=== PATIENT | male | born 1970 | race African-American/Black ===

== ENCOUNTER 2017-02-24 22:17 | Emergency (ER) | payer SELFPAY ==
--- NOTE | 2017-02-25 00:13 | ER Document Report ---
HPI - HPI Patient complains to provider of: elevated blood pressure Onset: Other - 3 days Onset/Duration: Persistent Quality of pain: No pain Pain Level: Denies Context: Pt states that he recently started measuring his blood pressure at home and has noticed that it has been elevated despite being compliant with taking his lisinopril. Patient denies any recent medication dosage changes to his medicine. Patient states his blood pressure was 185/107 at home which prompted him to come in today. Patient denies any complaints. Patient denies any headache, chest pain, shortness of breath, urinary symptoms or visual complaints. Additionally does complain of some insomnia. Reports that he has difficulty falling asleep as well as staying asleep at night. Associated Symptoms: Other - Insomnia Exacerbated by: Denies Relieved by: Denies Similar symptoms previously: Yes Recently seen / treated by doctor: No - ROS ROS below otherwise negative: Yes Systems Reviewed and Negative: Yes All other systems reviewed and negative - CONSTITUTIONAL Constitutional: DENIES: Fever, Chills - NEURO Neurology: DENIES: Headache, Weakness - CARDIOVASCULAR Cardiovascular: DENIES: Chest pain - RESPIRATORY Respiratory: DENIES: Trouble Breathing, Coughing - GASTROINTESTINAL Gastrointestinal: DENIES: Abdominal Pain, Nausea, Patient vomiting - MUSCULOSKELETAL Musculoskeletal: DENIES: Back Pain - DERM Skin Color: Normal Skin Problems: None Past Medical History - General Information source: Patient - Social History Smoking Status: Never Smoker Frequency of alcohol use: Occasional Drug Abuse: None Family History: Reviewed & Not Pertinent Patient has suicidal ideation: No Patient has homicidal ideation: No - Past Medical History Cardiac Medical History: Reports: Hx Hypertension Renal/ Medical History: Denies: Hx Peritoneal Dialysis Musculoskeltal Medical History: Reports Hx Gout Surgical Hx: Negative - Immunizations Hx Diphtheria, Pertussis, Tetanus Vaccination: Yes - received Tetanus in [facility] Provider Document - CONSTITUTIONAL Agree With Documented VS: Yes Exam Limitations: No Limitations General Appearance: WD/WN, No Apparent Distress - INFECTION CONTROL TRAVEL OUTSIDE OF THE [place] IN LAST 30 DAYS: No - HEENT HEENT: Atraumatic, Normal ENT Exam, Normocephalic - NECK Neck: Normal Inspection, Supple. negative: Lymphadenopathy-Left, Lymphadenopathy-Right - RESPIRATORY Respiratory: Breath Sounds Normal, No Respiratory Distress, Chest Non-Tender O2 Sat by Pulse Oximetry: 97 - CARDIOVASCULAR Cardiovascular: Regular Rate, Regular Rhythm, No Murmur - BACK Back: Normal Inspection - MUSCULOSKELETAL/EXTREMETIES Musculoskeletal/Extremeties: MAEW, FROM, No Edema - NEURO Level of Consciousness: Awake, Alert, Appropriate Motor/Sensory: No Motor Deficit - DERM Integumentary: Warm, Dry, No Rash Course - Vital Signs Vital signs: Temp Pulse Resp BP Pulse Ox 98.1 F 81 18 158/78 H 97 02/24/17 23:00 02/24/17 23:00 02/24/17 23:00 02/25/17 00:05 02/24/17 23:00 Discharge - Discharge Clinical Impression: Hx of essential hypertension Insomnia Qualifiers: Insomnia type: unspecified Qualified Code(s): G47.00 - Insomnia, unspecified Condition: Stable Disposition: HOME, SELF-CARE Instructions: High Blood Pressure ([facility]), Insomnia ([facility]) Additional Instructions: Return immediately for any new or worsening symptoms Followup with your primary care provider,Dr Salas, call tomorrow to make a followup appointment Your blood pressure was mildly elevated today, call your doctor on Sunday for a follow-up appointment to have your blood pressure rechecked. Prescriptions: Hydroxyzine HCl [Atarax 25 mg Tablet] 2 tab PO QHS PRN #14 tablet PRN Reason: Forms: Elevated Blood Pressure
[2017-02-25 00:58] VITALS: BP 137/85
== END 2017-02-25 00:58 | disposition home or self-care (01) ==
LOC: ER 22:17
DX: I10 Essential (primary) hypertension (principal); Z79.899 Other long term (current) drug therapy; G47.00 Insomnia, unspecified
CPT/HCPCS: 99283

== ENCOUNTER 2018-03-27 12:07 | Emergency (ER) | payer SELFPAY ==
--- NOTE | 2018-03-27 12:54 | ER Document Report ---
HPI - HPI Patient complains to provider of: Dental pain, back pain Onset/Duration: Persistent Quality of pain: Achy Pain Level: 4 Context: Patient reports dental pain that started yesterday with low back pain for the past 3 days. Patient denies any fever or injury. Patient denies any urinary symptoms. Patient denies any radiculopathy or paresthesia. Patient states he attempted to donate plasma today but his blood pressure was elevated at 150 systolically today. Patient states he has been compliant with his antihypertensive medication. Associated Symptoms: Other - Dental pain, low back pain. denies: Fever Exacerbated by: Movement Relieved by: Denies Similar symptoms previously: Yes Recently seen / treated by doctor: No - ROS ROS below otherwise negative: Yes Systems Reviewed and Negative: Yes All other systems reviewed and negative - CONSTITUTIONAL Constitutional: DENIES: Fever - EENT Notes: Dental pain - NEURO Neurology: DENIES: Headache - RESPIRATORY Respiratory: DENIES: Coughing - GASTROINTESTINAL Gastrointestinal: DENIES: Nausea, Patient vomiting - URINARY Urinary: DENIES: Dysuria, Urgency, Frequency - MUSCULOSKELETAL Musculoskeletal: REPORTS: Back Pain - DERM Skin Color: Normal Skin Problems: None Past Medical History - General Information source: Patient - Social History Smoking Status: Never Smoker Frequency of alcohol use: Occasional Drug Abuse: None Occupation: [employer] Family History: Reviewed & Not Pertinent - Past Medical History Cardiac Medical History: Reports: Hx Hypertension Renal/ Medical History: Denies: Hx Peritoneal Dialysis Musculoskeltal Medical History: Reports Hx Gout Surgical Hx: Negative - Immunizations Hx Diphtheria, Pertussis, Tetanus Vaccination: Yes - received Tetanus in [facility] Provider Document - CONSTITUTIONAL Agree With Documented VS: Yes Exam Limitations: No Limitations General Appearance: WD/WN, No Apparent Distress - INFECTION CONTROL TRAVEL OUTSIDE OF THE [place] IN LAST 30 DAYS: No - HEENT HEENT: Atraumatic, Normal ENT Exam, Normocephalic Mouth Diagram: 1 - Dental decay, receding gingiva, no sublingual or submental swelling. No trismus. No drainable abscess - NECK Neck: Normal Inspection, Supple - RESPIRATORY Respiratory: Breath Sounds Normal, No Respiratory Distress - CARDIOVASCULAR Cardiovascular: Regular Rate, Regular Rhythm, No Murmur - BACK Back: Abnormal Inspection - Left lower lumbar paraspinal tenderness, no midline tenderness step-off or deformity. negative: CVA Tenderness-Right, CVA Tenderness-Left - MUSCULOSKELETAL/EXTREMETIES Musculoskeletal/Extremeties: ALEXUS LOPEZ - NEURO Level of Consciousness: Awake, Alert, Appropriate Motor/Sensory: No Motor Deficit Notes: No saddle anesthesia, normal gait, no footdrop - DERM Integumentary: Warm, Dry Course - Re-evaluation Re-evalutation: 03/27/18 12:51 The patient presents with low back pain without signs of spinal cord compression , cauda equina syndrome, infection, aneurysm, or other serious etiology. The patient is neurologically intact. Given the extremely risk of these diagnoses further testing and evaluation for these possibilities does not appear to be indicated at this time. Patient has been instructed to return if the symptoms worsen or change in any way. - Vital Signs Vital signs: Temp Pulse Resp BP Pulse Ox 98.5 F 105 H 20 139/90 H 99 03/27/18 12:23 03/27/18 12:23 03/27/18 12:23 03/27/18 12:23 03/27/18 12:23 Discharge - Discharge Clinical Impression: Toothache Low back pain Qualifiers: Chronicity: chronic Back pain laterality: left Sciatica presence: without sciatica Qualified Code(s): M54.5 - Low back pain Condition: Stable Disposition: HOME, SELF-CARE Instructions: Low Back Pain ([facility]), Oral Narcotic Medication ([facility]), Penicillin V K ([facility]), Toothache ([facility]) Additional Instructions: Return immediately for any new or worsening symptoms Followup with your primary care provider, call tomorrow to make a followup appointment Follow-up with a dentist for further evaluation Prescriptions: Cyclobenzaprine HCl [Flexeril 10 Mg Tablet] 10 mg PO TID #15 tablet Oxycodone HCl/Acetaminophen [Percocet 5-325 mg Tablet] 1 tab PO ASDIR PRN #15 tablet PRN Reason: Penicillin V Potassium [Penicillin Vk 500 mg Tablet] 500 mg PO BID #20 tablet Forms: Return to Work Referrals: [facility] [Provider Group] - Follow up as needed [facility] [Provider Group] - Follow up as needed
[2018-03-27 13:13] VITALS: BP 136/93
== END 2018-03-27 13:00 | disposition home or self-care (01) ==
LOC: ER 12:07
DX: K08.9 Disorder of teeth and supporting structures, unspecified (principal); M54.5 Low back pain; I10 Essential (primary) hypertension
CPT/HCPCS: 99283

== ENCOUNTER 2019-08-18 15:19 | Emergency (ER) | payer SELFPAY ==
[2019-08-18] MEDS ORDERED: CETIRIZINE 10 MG TABLET PO ONE (16:46)
[2019-08-18] MEDS ORDERED: FLUTICASONE NASAL SPRAY 50 MCG/SPRY 120 SPRAY/16 GM NASL ONE (16:46)
[2019-08-18] MEDS ORDERED: PENICILLIN V POTASSIUM 500 MG TABLET PO ONE (16:47)
--- NOTE | 2019-08-18 16:47 | ER Document Report ---
HPI - HPI Time Seen by Provider: 08/18/19 16:45 Pain Level: 3 Context: Patient is a 49-year-old male with a history of hypertension who presents the emergency department with a chief complaint of cough, congestion and dental pain. Patient reports he has poor dentition and always has some dental pain but it appears to be worse in the left floor mouth over the past few days. Patient reports he is never needed antibiotics for a dental infection and has not been taking any medications for this. Patient also reports a productive cough over the past week with congestion runny nose. Patient denies fever. Patient denies sore throat. Patient reports he has used the Afrin multiple times with minimal relief. Patient denies chest pain or shortness of breath. Patient reports most of his symptoms are just located in the nasal area. Patient reports he is not sure if he has allergies does not take any medication. Past Medical History - General Information source: Patient - Social History Smoking Status: Never Smoker Chew tobacco use (# tins/day): No Frequency of alcohol use: Heavy Drug Abuse: None Lives with: Family Family History: Reviewed & Not Pertinent Patient has suicidal ideation: No Patient has homicidal ideation: No - Past Medical History Cardiac Medical History: Reports: Hx Hypertension Pulmonary Medical History: Reports: None EENT Medical History: Reports: None Neurological Medical History: Reports: None Endocrine Medical History: Reports: None Renal/ Medical History: Reports: None. Denies: Hx Peritoneal Dialysis Malignancy Medical History: Reports None GI Medical History: Reports: None Musculoskeletal Medical History: Reports Hx Gout Skin Medical History: Reports None Psychiatric Medical History: Reports: None Traumatic Medical History: Reports: None Infectious Medical History: Reports: None - Immunizations Hx Diphtheria, Pertussis, Tetanus Vaccination: Yes - received Tetanus in [facility] Vertical Provider Document - CONSTITUTIONAL Agree With Documented VS: Yes Exam Limitations: No Limitations General Appearance: No Apparent Distress - INFECTION CONTROL TRAVEL OUTSIDE OF THE [place] IN LAST 30 DAYS: No - HEENT HEENT: Atraumatic, Normal ENT Exam, Normocephalic, PERRLA Mouth Diagram: 1 - Poor dentition with a large amount of tartar buildup at the base of all the teeth in his lower mouth. There is some redness noted around the base of these teeth. No palpable abscess. - NECK Neck: Normal Inspection - RESPIRATORY Respiratory: Breath Sounds Normal, No Respiratory Distress - CARDIOVASCULAR Cardiovascular: Regular Rate, Regular Rhythm - GI/ABDOMEN Gastrointestinal: Abdomen Soft, Abdomen Non-Tender, Normal Bowel Sounds - MUSCULOSKELETAL/EXTREMETIES Musculoskeletal/Extremeties: FROM, Non-Tender - NEURO Level of Consciousness: Awake, Alert, Appropriate - DERM Integumentary: Warm, Dry, No Rash Course - Vital Signs Vital signs: Temp Pulse Resp BP Pulse Ox 98.1 F 109 H 18 136/83 H 97 08/18/19 15:31 08/18/19 15:31 08/18/19 15:31 08/18/19 15:31 08/18/19 15:31 - Diagnostic Test Radiology reviewed: Reports reviewed Radiology results interpreted by me: 08/18/19 17:38 Chest X-Ray 08/18/19 16:46 IMPRESSION: No acute cardiopulmonary process. Discharge - Discharge Clinical Impression: Dental infection, Cough URI (upper respiratory infection) Qualifiers: URI type: unspecified viral URI Qualified Code(s): J06.9 - Acute upper respiratory infection, unspecified Condition: Stable Disposition: HOME, SELF-CARE Additional Instructions: Dental Infection or Abscess You have an infection, perhaps an abscess (pus formation) of the gum around one of your teeth, which is probably decayed. If there is an abscess, it may drain on its own or it may need to be opened or lanced. Severe swelling or drainage around a tooth usually means a deep dental abscess which usually requires evaluation and treatment by a dentist or oral surgeon. Antibiotics may be prescribed while awaiting dental treatment. If you develop high fever with chills, worsening pain, or increasing swelling in the area, see a dentist or oral surgeon immediately or return to the Emergency Department immediately. Prescriptions: Penicillin V Potassium [Penicillin Vk 500 mg Tablet] 500 mg PO BID 10 Days #20 tablet Referrals: [facility] [Provider Group] - Follow up as needed
--- NOTE | 2019-08-18 17:11 | RADIOLOGY REPORT (SQ) ---
EXAM DESCRIPTION: CHEST 2 VIEWS COMPLETED DATE/TIME: 08/18/2019 5:01 pm REASON FOR STUDY: cough COMPARISON: None. EXAM PARAMETERS: NUMBER OF VIEWS: two views TECHNIQUE: Digital Frontal and Lateral radiographic views of the chest acquired. RADIATION DOSE: NA LIMITATIONS: none FINDINGS: LUNGS AND PLEURA: No consolidation, pleural effusion or pneumothorax. MEDIASTINUM AND HILAR STRUCTURES: No mediastinal or hilar contour abnormality. HEART AND VASCULAR STRUCTURES: The cardiac silhouette and pulmonary vasculature within normal limits. BONES: No acute findings. HARDWARE: None in the chest. OTHER: No other finding. IMPRESSION: No acute cardiopulmonary process. TECHNICAL DOCUMENTATION: JOB ID: [id number] [employer]- All Rights Reserved Reading location - IP/workstation name: [email or web address]
[2019-08-18 17:53] VITALS: BP 106/71
== END 2019-08-18 17:53 | disposition home or self-care (01) ==
LOC: ER 15:19
DX: K04.7 Periapical abscess without sinus (principal); J06.9 Acute upper respiratory infection, unspecified; R05 Cough; R09.81 Nasal congestion; K08.89 Other specified disorders of teeth and supporting structures; I10 Essential (primary) hypertension
CPT/HCPCS: 71046; 99283